=== PATIENT | male | born 1965 | race Caucasian/White ===

== ENCOUNTER → 2017-11-03 11:57 | Outpatient (CLI) | payer BC, SELFPAY ==
--- NOTE | 2017-11-03 | DI.RAD.S_ITS ---
PROCEDURE: XR WRIST RT MIN 3V INDICATIONS: RIGHT WRIST PAIN TECHNIQUE: 4 views of the wrist were acquired. COMPARISON: None. FINDINGS: Bones: No fractures or dislocations. No suspicious bony lesions. Scaphoid view: No fracture Soft tissues: No suspicious soft tissue calcifications. IMPRESSION: No fracture Dictated by: Prabhakar Terrell M.D. on 11/03/2017 at 14:33 Approved by: Prabhakar Terrell M.D. on 11/03/2017 at 14:50
== END ==
PROVIDERS: PCP Nurse Practitioner Family; Visit Provider Nurse Practitioner Family
DX: M25.531 Pain in right wrist (principal)
CPT/HCPCS: 73110

== ENCOUNTER → 2020-09-07 07:44 | Outpatient (CLI) | payer BC, SELFPAY ==
[2020-09-07] MEDS: COVID-19 VACC #1, MRNA(MOD) 100 MCG/0.5 ML VIAL IM (07:48)
== END ==
PROVIDERS: Visit Provider Internal Medicine
DX: Z23 Encounter for immunization (principal)
CPT/HCPCS: 0011A; 91301

== ENCOUNTER → 2020-10-05 07:47 | Outpatient (CLI) | payer BC, SELFPAY ==
[2020-10-05] MEDS: COVID-19 VACC #2, MRNA(MOD) 100 MCG/0.5 ML VIAL IM (07:52)
== END ==
PROVIDERS: Family Provider Internal Medicine; PCP Nurse Practitioner Family; Visit Provider Internal Medicine
DX: Z23 Encounter for immunization (principal)
CPT/HCPCS: 0012A; 91301

== ENCOUNTER 2021-06-11 14:43 | Emergency (ER) | payer BC, SELFPAY ==
[2021-06-11 14:48] VITALS: BP 152/100; PULSE 82; RESP 14; TEMP 36.4; O2SAT 98; BMI 32.7
--- NOTE | 2021-06-11 14:53 | DI.RAD.S_ITS ---
PROCEDURE: XR ANKLE LT MIN 3V INDICATIONS: rolled ankle TECHNIQUE: 3 views of the ankle were acquired. COMPARISON: None. FINDINGS: Bones: No fractures or dislocations. Ankle mortise is normally aligned. No suspicious bony lesions. Soft tissues: Lateral ankle soft tissue swelling is seen. No tibiotalar joint effusion. Achilles tendon appears normal. IMPRESSION: No gross acute ankle fracture or dislocation. Intact ankle mortise. Lateral ankle soft tissue swelling. Dictated by: Renard Jones M.D. on 06/11/2021 at 15:39 Approved by: Renard Jones M.D. on 06/11/2021 at 15:40
[2021-06-11 16:59] VITALS: PULSE 60
--- NOTE | 2021-06-11 18:09 | ED_ITS ---
HPI - Extremity Injury (Lower) General Chief Complaint: Extremity Injury, Lower Stated Complaint: Fell on ice- rolled left ankle Time Seen by Provider: 06/11/21 18:03 Source: patient Mode of arrival: Ambulatory History of Present Illness HPI Narrative: Patient is a 56-year-old male here for evaluation of a left ankle injury. Earlier today he slipped while on some ice and rolled his left ankle. He reports pain on the outside portion of his left ankle and along the Achilles tendon in the back. He has been ambulatory. Has had some swelling along the outside of his ankle. No prior injuries. Has not tried anything for the symptoms prior to arrival. Reports no other injuries from the event. Related Data Home Medications Medication Instructions Recorded Confirmed aspirin 81 mg tablet,delayed 81 mg PO QDAY #0 08/28/17 release atorvastatin 40 mg tablet 20 mg PO QDAY #0 08/28/17 Previous Rx's Medication Instructions Recorded losartan 50 mg-hydrochlorothiazide 1 tab PO QDAY #30 tab 08/29/17 12.5 mg tablet Allergies Allergy/AdvReac Type Severity Reaction Status Date / Time No Known Drug Allergies Allergy Verified 06/11/21 14:50 Review of Systems Musculoskeletal Musculoskeletal: Reports system reviewed and no additional complaints, except as documented and Reports as per HPI Integumentary/Breasts Skin/Breast: Reports system reviewed and no additional complaints, except as documented and Reports as per HPI Neurologic Neurologic: Reports system reviewed and no additional complaints, except as documented and Reports as per HPI Hematologic/Lymphatic On Anticoagulants: No Patient History Medical History Global amnesia Social History Smoking Status: Unknown if ever smoked Smoking Status: Unknown if ever smoked alcohol intake frequency: 0-2 drinks per day Substance Use Type: does not use Exam Initial Vital Signs Initial Vital Signs: Vital Signs Temperature 97.6 F 06/11/21 14:48 Pulse Rate 82 06/11/21 14:48 Respiratory Rate 14 06/11/21 14:48 Blood Pressure 152/100 H 06/11/21 14:48 Pulse Oximetry 98 06/11/21 14:48 Const General: cooperative and healthy appearing [facility] Head: normal to inspection and normocephalic Cardio Pulses: dorsalis pedis present on the left Skin General: no rashes or lesions noted Neuro Sensory Exam: no sensory deficits noted Extrem Other: No proximal fibula tenderness on the left. Achilles tendon is intact. Patient able to the plantar flex and dorsiflex. No tenderness along the medial malleolus. No tenderness along the forefoot or along the Lisfranc joint. No tenderness along the base of the 5th metatarsal. Has some tenderness inferior and posterior to the lateral malleolus. Procedures Orthopedic Splinting/Casting Injury #1: Side: left Lower Extremity Injury Location: ankle Lower Extremity Immobilizer: Ismael wrap Post splinting neuro exam: intact Post splinting vascular exam: intact Placed by: Provider Course Orders Ordered: ED Orders 06/11/21 14:53 XR ankle LT min 3V Stat Vital Signs Vital signs: Vital Signs - 8 hr 06/11/21 14:48 06/11/21 16:59 Temperature 97.6 F Pulse Rate 82 Pulse Rate [Left Dorsalis Pedis] 60 Respiratory Rate 14 Blood Pressure 152/100 H Pulse Oximetry 98 MDM - Extremity Injury (Lower) Imaging Data Extremity x-ray #1: Radiologist's Impression: [address] [address] XRay Report Signed Patient: Tom Hendricks MR#: [id number] : 1965 Acct:[id number] Age/Sex: 56 / M Date of Service: 06/11/21 Loc: ED Accession Number: [id number] ?? Procedure: XR ankle LT min 3V Ordering Provider: Anahy Espinosa MD PROCEDURE:? XR ANKLE LT MIN 3V ? INDICATIONS:? rolled ankle ? TECHNIQUE:? 3 views of the ankle were acquired.? ? COMPARISON:? None. ? FINDINGS:? ? Bones:? No fractures or dislocations.? Ankle mortise is normally aligned.? No suspicious bony lesions.? ? Soft tissues:? Lateral ankle soft tissue swelling is seen.? No tibiotalar joint effusion. ?Achilles tendon appears normal.? ? ? IMPRESSION:? No gross acute ankle fracture or dislocation.? Intact ankle mortise.? Lateral ankle soft tissue swelling. ? Dictated by: Renard Jones M.D. on 06/11/2021 at 15:39 ? ? Approved by: Renard Jones M.D. on 06/11/2021 at 15:40?? MDM Narrative Medical decision making narrative: Patient is neurovascularly intact. No fractures noted on the x-rays. Did discuss this with him. He was given an Ismael bandage for his comfort. Patient declined the offer for crutches. He was given care instructions return precautions. He expressed understanding and agreement. Discharge Plan Departure Patient Disposition: Home Clinical Impression: Ankle sprain and strain Instructions: DI for Knee Sprain, How To Perform RICE (Rest, Ice, Compress, Elevate), How to Apply an Elastic Wrap on Ankle Activity Restrictions/Additional Instructions: There were no fractures noted on the x-ray so you can walk on your ankle as tolerated. Keep it elevated and use ice like we discussed. Return to the e mergency department for any new or worsening symptoms. Prescriptions: No Action atorvastatin 40 MG tablet 20 mg PO QDAY Qty: 0 0RF aspirin 81 MG tablet,delayed release (DR/EC) 81 mg PO QDAY Qty: 0 0RF losartan-hydrochlorothiazide 50 MG/12.5 MG tablet 1 tab PO QDAY Qty: 30 0RF Referrals: Leda Kay PA-C [Primary Care Provider] -
== END 2021-06-11 18:18 | disposition home or self-care (01) ==
PROVIDERS: Emergency Provider Emergency Medicine; Family Provider Internal Medicine; PCP Physician Assistant
DX: S93.402A Sprain of unspecified ligament of left ankle, initial encounter (principal); X50.1XXA Overexertion from prolonged static or awkward postures, initial encounter
CPT/HCPCS: 73610; 99283

== ENCOUNTER → 2021-06-19 14:17 | Outpatient (CLI) | payer BC, SELFPAY ==
[2021-06-19 14:58] LABS: Add Manual Diff / Slide Review NO; Basophils Absolute Auto 100 /uL (0-100); Basophils Percent Auto 0.7 % (0-2); Eosinophils Absolute Auto 200 /uL (0-450); Hematocrit 45.4 % (41-53); Hemoglobin 15.1 g/dL (13.5-17.5); Lymphocytes Absolute Auto 2200 /uL (1100-4500); Lymphocytes Percent Auto 28.5 % (25-40); Mean Corpuscular HGB Conc 33.2 % (30-36); Mean Corpuscular Hemoglobin 28.2 PG (26-34); Mean Corpuscular Volume 84.9 fL (80-100); Monocytes Absolute Auto 800 /uL (0-900); Monocytes Percent Auto 9.7 % (3-14); Neutrophils Absolute Auto 4600 /uL (1500-7000); Neutrophils Percent Auto 59.1 % (50-75); Platelet Count 283 X10^3/uL (150-400); Red Blood Cell Count 5.35 X10^6/uL (4.5-5.9); Red Cell Distribution Width 13.1 % (11.6-14.8); White Blood Cell Count 7.7 X10^3/uL (4.5-11.0)
[2021-06-19 15:12] LABS: Alanine Aminotransferase 53 IU/L (<50); Albumin 4.5 g/dL (3.5-5.0); Albumin Globulin Ratio 1.3 (1.0-2.8); Alkaline Phosphatase 66 U/L (38-126); Aspartate Aminotransferase 44 IU/L (17-59); BUN Creatinine Ratio 14.6 (6-22); Bilirubin Total 0.9 mg/dL (0.2-1.3); Blood Urea Nitrogen 15 mg/dL (9-20); Calcium 9.6 mg/dL (8.4-10.2); Carbon Dioxide 29 mmol/L (22-32); Chloride 102 mmol/L (98-107); Cholesterol 236 mg/dL (140-199); Estimated Glomerular Filt Rate > 60.0 mL/min (>60); Globulin 3.6 g/dL (1.7-4.1); Glucose 92 mg/dL (70-100); HDL Cholesterol 54 mg/dL (40-60); HEMOLYSIS < 15 (0-50); LDL Cholesterol Calculated 142 mg/dL (<100); Potassium 4.1 mmol/L (3.4-5.1); Sodium 139 mmol/L (137-145); Total Protein 8.1 g/dL (6.3-8.2); Triglycerides 199 mg/dL (35-150)
== END ==
PROVIDERS: Family Provider Internal Medicine; PCP Physician Assistant; Referring Provider Physician Assistant; Visit Provider Physician Assistant
DX: E78.2 Mixed hyperlipidemia (principal); I10 Essential (primary) hypertension
CPT/HCPCS: 36415; 80053; 80061; 85025

== ENCOUNTER → 2021-07-15 09:11 | Outpatient (CLI) | payer BC, SELFPAY ==
[2021-07-15 10:40] LABS: COVID19 -Nasal RAPID Negative (Negative)
== END ==
PROVIDERS: Family Provider Internal Medicine; PCP Physician Assistant; Visit Provider Surgery
DX: Z01.812 Encounter for preprocedural laboratory examination (principal); Z20.822 Contact with and (suspected) exposure to COVID-19
CPT/HCPCS: 87635; C9803

== ENCOUNTER 2021-07-16 07:48 | Day surgery (SDC) | payer BC, SELFPAY ==
[2021-07-16] VITALS (7 sets, daily range): BP systolic 124–163; BP diastolic 65–102; PULSE 70–91; RESP 12–21; TEMP 35.9–36.6; O2SAT 95–98; BMI 32.3
--- NOTE | 2021-07-16 | PATH_ITS ---
[facility] Accession Number: [id number] . 01 Material submitted: . colon - CECUM . 02 Diagnosis: Cecum, Biopsy: Benign lymphoid aggregate. MRV 07/19/2021 1159 Local . 02 Electronically signed: . Yojana August MD, Pathologist NPI- [id number] . 01 Gross description: . CECUM: Received in formalin is 1 fragment(s) of cabrera, soft tissue measuring 0.3 x 0.3 x 0.2 cm submitted entirely in 1 cassette(s) /DUNG 07/18/2021 0149 Local . 02 Pathologist provided ICD-10: K63.5 . 02 CPT . 411833 Specimen Comment: A courtesy copy of this report has been sent to [phone] Performed at: 01 [facility] Cytology [address] [id number] MD Juan Manuel Grady MD Phone: [phone] Performed at: 02 [facility] [place] [address] [place], [place] [id number] MD Yojana August MD Phone: [phone]
[2021-07-16] MEDS: LACTATED RINGERS 1,000 ML 200 ML IV (08:00)
--- NOTE | 2021-07-16 08:16 | PM.PREOP ---
Pre-operative Note COVID-19 Criteria for continued procedure: Deterioration of the patient's condition or overall health Interval Note History & Physical reviewed/Exam performed by Physician: Yes Changes to H&P: No ASA Class (for procedural sedation): II
[2021-07-16] MEDS: MIDAZOLAM 5 MG/5 ML VIAL IV (08:19)
[2021-07-16] MEDS: fentaNYL 250 MCG/5 ML INJ IV (08:19)
--- NOTE | 2021-07-16 08:43 | P.OP.COLON_ITS ---
Operative Date/Time/Diagnoses Date of procedure: 07/16/21 Time of procedure: 08:43 Pre-op diagnosis: Blood per rectum Post-op diagnosis: other (Colitis) Procedure & Clinicians Study performed: Colonoscopy Same procedure as scheduled: Yes Indications: 56-year-old man with intermittent rectal bleeding here for diagnostic colonoscopy. Surgeon: Devyn Overton Procedure Notes Procedure in detail: Medications: Conscious sedation using 8mg IV midazolam and 200 mcg IV of fentanyl The history and physical was performed/updated and the patient is ASA class is 2. The procedure was discussed in detail with the patient. Potential risks complications including infection, bleeding, missed diagnosis, perforation, need for surgery, and were explained. Their questions were answered and informed consent was obtained. Patient was brought to the procedure room and placed standard monitoring equipment. The patient's vital signs were monitored continuously throughout the entire procedure. Prior to starting time-out was performed. The patient was placed in the left lateral recumbent position. Procedural sedation was administered. Examination began with a thorough inspection of the perianal area there was no evidence of fissures, fistulae, external hemorrhoids or cutaneous malignancy. The colonoscopy scope was then placed into the anal canal and was advanced to the cecum, which was identified by the ileocecal valve, the appen diceal orifice and the confluence of the taenia. The scope was then slowly withdrawn examining colon thoroughly in all directions, irrigating it of any residual stool. FINDINGS 1. Mild inflammation of the cecum at the ileocecal valve biopsy taking with us forceps. No active bleeding or ulceration 2. No masses or polyps The patient tolerated the procedure well. They will be discharged once criteria are met. The prep was of fair quality. The withdrawl time was 9 minutes. The sedation time was 12 minutes. Specimen(s): other (Cecum) Complications: none Impression: Colitis Post-procedure Recommendations: Will call with biopsy results Disposition: same day surgery
--- NOTE | 2021-07-16 09:14 | SUR.PHASEI ---
Transfer to [facility]PD. Sbar at bedside with Aicha VALERIO. Tolerating fluids well.
--- NOTE | 2021-07-16 09:26 | SUR.PHASEI ---
All nursing care and charting of Yani Ca SN supervised by Marissa VALERIO
== END 2021-07-16 09:30 | disposition home or self-care (01) ==
PROVIDERS: Family Provider Internal Medicine; PCP Physician Assistant; Referring Provider Surgery; Visit Provider Surgery
PROC: 0DJD8ZZ Inspection of Lower Intestinal Tract, Via Natural or Artificial Opening Endoscopic (ICD-10-PCS; CPT 45378; principal; 2021-07-16 08:30)
DX: K52.9 Noninfective gastroenteritis and colitis, unspecified (principal)
CPT/HCPCS: 45378; 99152; J2250; J3010